=== PATIENT | female | born 2000 | race Two or more races ===

== ENCOUNTER 2018-09-27 03:45 | Emergency (ER) | payer SELFPAY ==
[~2018-09-27] VITALS: Ht 170.2 cm; Wt 59.0 kg
--- NOTE | 2018-09-27 03:37 | Emergency Room Report ---
History of Present Illness General Chief Complaint: Altered Level of Consciousness Source: EMS Present Illness HPI Pt. is here because she has been drinking. Found at wrong person's home. Denies specific trauma, no fall, no headache, no neck pain, no cp, no abd pain, no sob , no extremity pain. No report of trauma. The patient denies specific complaint. The remaining HPI is limited due to the patient's alcohol intoxication. Allergies: Coded Allergies: UNABLE TO ASSESS (Unverified , 09/27/18) pt is nonverbal at time of arrival Patient History Last Menstrual Period: N/A Nursing Documentation-H Past Medical History: No Stated History Review of Systems All Other Systems: limited Physical Exam Vital Signs Date Time Temp Pulse Resp B/P (MAP) Pulse Ox O2 Delivery O2 Flow Rate FiO2 09/27/18 03:30 97.3 80 18 114/71 100 Room Air General Appearance: well appearing, no apparent distress, other - intoxicated Head: normocephalic, atraumatic Eyes: bilateral eye normal inspection, bilateral eye PERRL ENT: uvula midline, moist mucus membranes Neck: full range of motion, supple Respiratory: no respiratory distress Cardiovascular #1: regular rate, rhythm Gastrointestinal: normal bowel sounds, non tender Musculoskeletal: normal inspection Neurologic: DTRs symmetric, other - intoxicated; nonfocal MAEx4 spont Psychiatric: other - cannot evaluate Skin: no rash Medical Decision Making Diagnostic Impression: Primary Impression: Alcohol intoxication Rhythm Strip Diag. Results Rhythm Strip Time: 03:36 EP Interpretation: yes Rate: 90 Rhythm: NSR Last Vital Signs Date Time Temp Pulse Resp B/P (MAP) Pulse Ox O2 Delivery O2 Flow Rate FiO2 09/27/18 03:30 97.3 80 18 114/71 100 Room Air Status: improved Disposition: HOME, SELF-CARE Condition: Stable Scripts Unable to Obtain Active Prescriptions or Reported Meds Patient Instructions: Alcohol Intoxication, [id number] Edwar Pinzon M.D. Sep 27, 2018 03:37
[2018-09-27 03:40] VITALS: BP 106/56
[2018-09-27 05:15] VITALS: BP 98/58
[2018-09-27 07:14] VITALS: BP 100/60
== END 2018-09-27 07:10 | disposition home or self-care (01) ==
LOC: EDBD 03:45 → EMR 05:15
DX: F10.129 Alcohol abuse with intoxication, unspecified (principal)
CPT/HCPCS: 99283